=== PATIENT | female | born 2000 | race Caucasian/White ===

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

== ENCOUNTER 2019-01-09 13:05 | Emergency (ER) | payer BC ==
--- NOTE | 2019-01-09 14:06 | ER Document Report ---
ED Medical Screen (RME) - General Chief Complaint: Lower Abdominal Pain Stated Complaint: VOMITING,ABDOMINAL PAIN Time Seen by Provider: 01/09/19 14:04 Mode of Arrival: Ambulatory Information source: Patient Notes: 17-year-old female presents to ED for complaint of upper abdominal pain nausea vomiting or diarrhea times a month. She states she has been dizzy off and on. She states she cannot keep any food or fluids down. She denies any past medical history she does smoke half pack a day denies drinking or drugs. She states her only medical history is ear tubes as a child. She states she works at [employer] and lives with her mother. Patient is alert oriented respirations regular and unlabored speaking in full sentences walks with a even steady gait. I have greeted and performed a rapid initial assessment of this patient. A comprehensive ED assessment and evaluation of the patient, analysis of test results and completion of medical decision making process will be conducted by an additional ED providers. Dictation of this chart was performed using voice recognition software; therefore, there may be some unintended grammatical errors. TRAVEL OUTSIDE OF THE [place] IN LAST 30 DAYS: No - Related Data Allergies/Adverse Reactions: No Known Allergies Allergy (Verified 01/09/19 13:09) Past Medical History Renal/ Medical History: Denies: Hx Peritoneal Dialysis - Immunizations Immunizations up to date: Yes Hx Diphtheria, Pertussis, Tetanus Vaccination: Yes Physical Exam - Vital signs Vitals: Temp Pulse Resp BP Pulse Ox 98.2 F 92 H 16 147/81 H 97 01/09/19 13:12 01/09/19 13:12 01/09/19 13:12 01/09/19 13:12 01/09/19 13:12 Course - Vital Signs Vital signs: Temp Pulse Resp BP Pulse Ox 98.2 F 92 H 16 147/81 H 97 01/09/19 13:12 01/09/19 13:12 01/09/19 13:12 01/09/19 13:12 01/09/19 13:12
[2019-01-09 15:21] LABS: ALANINE AMINOTRANSFERASE 26 U/L (5-35); ALBUMIN 5.2 g/dL (3.7-5.6); ALKALINE PHOSPHATASE 47 U/L (50-135); ANION GAP 11 (5-19); ASPARTATE AMINO TRANSFERASE 22 U/L (5-30); BILIRUBIN,DIRECT 0.2 mg/dL (0.0-0.4); BILIRUBIN,TOTAL 0.8 mg/dL (0.2-1.3); BLOOD UREA NITROGEN 10 mg/dL (7-20); CALCIUM 10.1 mg/dL (8.4-10.2); CARBON DIOXIDE 27 mmol/L (22-30); CHLORIDE 103 mmol/L (98-107); GLUCOSE 88 mg/dL (75-110); LIPASE 104.7 U/L (23-300); POTASSIUM 4.2 mmol/L (3.6-5.0); SODIUM 141.1 mmol/L (137-145); TOTAL PROTEIN 8.2 g/dL (6.3-8.2)
[2019-01-09 15:34] LABS: APPEARANCE,URINE CLEAR; BILIRUBIN,URINE NEGATIVE (NEGATIVE); COLOR,URINE STRAW; GLUCOSE, URINE NEGATIVE (NEGATIVE); KETONES,URINE NEGATIVE (NEGATIVE); NITRITE,URINE NEGATIVE (NEGATIVE); PROTEIN,URINE NEGATIVE (NEGATIVE); URINE SPECIFIC GRAVITY 1.006; UROBILINOGEN,URINE NEGATIVE mg/dL (<2.0)
[2019-01-09 15:35] LABS: LEUKOCYTE ESTERASE,URINE NEGATIVE (NEGATIVE)
[2019-01-09 15:40] LABS: URINE AMPHETAMINES SCREEN NEGATIVE; URINE BARBITURATES SCREEN NEGATIVE; URINE BENZODIAZEPINES SCREEN NEGATIVE; URINE COCAINE SCREEN NEGATIVE; URINE MARIJUANA (THC) SCREEN UNCONFIRMED POSITIVE; URINE METHADONE SCREEN NEGATIVE; URINE PHENCYCLIDINE SCREEN NEGATIVE
--- NOTE | 2019-01-09 16:10 | RADIOLOGY REPORT (SQ) ---
EXAM DESCRIPTION: U/S ABDOMEN LIMITED W/O DOP COMPLETED DATE/TIME: 01/09/2019 3:56 pm REASON FOR STUDY: upper abdominal pain for a month COMPARISON: None. TECHNIQUE: Dynamic and static grayscale images acquired of the abdomen and recorded on PACS. Additio nal selected color Doppler and spectral images recorded. LIMITATIONS: None. FINDINGS: PANCREAS: Midline pancreas unremarkable LIVER: No masses. Echotexture normal. LIVER VASCULATURE: Normal directional flow of the main portal vein and hepatic veins. GALLBLADDER: No stones. Normal wall thickness. No pericholecystic fluid. ULTRASOUND-DETECTED PARRA'S SIGN: Negative. INTRAHEPATIC DUCTS AND COMMON DUCT: CBD and intrahepatic ducts normal caliber. No filling defects. INFERIOR VENA CAVA: Normal flow. AORTA: No aneurysm. RIGHT KIDNEY: Normal size. Normal echogenicity. No solid or suspicious masses. No hydronephrosis. No calcifications. PERITONEAL AND RIGHT PLEURAL SPACE: No ascites or effusions. OTHER: No other significant findings. IMPRESSION: NORMAL RIGHT UPPER QUADRANT ULTRASOUND. TECHNICAL DOCUMENTATION: JOB ID: [id number] [employer]- All Rights Reserved Reading location - IP/workstation name: [email or web address]
[2019-01-09 16:32] LABS: ABSOLUTE BASOPHILS # (AUTO) 0.1 10^3/uL (0.0-0.2); ABSOLUTE EOSINOPHILS # (AUTO) 0.1 10^3/uL (0.0-0.6); ABSOLUTE LYMPHOCYTES (AUTO) 2.3 10^3/uL (0.5-4.7); ABSOLUTE MONOCYTES (AUTO) 0.6 10^3/uL (0.1-1.4); ABSOLUTE NEUT (AUTO) 6.3 10^3/uL (1.7-8.2); BASOPHILS % (AUTO) 0.6 % (0-2); EOSINOPHILS % (AUTO) 1.4 % (0-6); HEMATOCRIT 43.6 % (36.0-47.0); HEMOGLOBIN 15.3 g/dL (12.0-15.5); LYMPHOCYTES % (AUTO) 24.8 % (13-45); MEAN CORPUSCULAR HEMOGLOBIN 30.7 pg (27.0-33.4); MEAN CORPUSCULAR HGB CONC 35.1 g/dL (32.0-36.0); MEAN CORPUSCULAR VOLUME 88 fl (80-97); MONOCYTES % (AUTO) 6.1 % (3-13); PLATELET COUNT 360 10^3/uL (150-450); RED BLOOD COUNT 4.98 10^6/uL (3.72-5.28); RED CELL DISTRIBUTION WIDTH 12.4 % (11.5-14.0); SEGMENTED NEUTROPHILS % (AUTO) 67.1 % (42-78); TOTAL CELLS COUNTED % (AUTO) 100 %; WHITE BLOOD COUNT 9.4 10^3/uL (4.0-10.5)
--- NOTE | 2019-01-09 18:20 | ER Document Report ---
ED General - General Chief Complaint: Lower Abdominal Pain Stated Complaint: VOMITING,ABDOMINAL PAIN Time Seen by Provider: 01/09/19 14:04 Primary Care Provider: SHANEL RIVERO MD [ACTIVE STAFF] - Follow up in 1 week (for GI follow up) Mode of Arrival: Ambulatory TRAVEL OUTSIDE OF THE [place] IN LAST 30 DAYS: No - HPI Notes: 18 year old female to the ED with mom and dad with C/O diffuse abdominal pain with associated nausea, vomiting, and diarrhea for about one month. dad reports that really the vomiting and diarrhea had an uptick in occurrence the past week. Patient states she has vomited about 3 times. States that when she eats, she has worsening upper abdominal pain. States that every time she eats, "it goes right through me". States that she recently has been taking NSaids every day to combat pain from impacted wisdom teeth. She is supposed to get them removed on February 16 but she has been struggling with the pain. Admits that with the dental pain, she experiences headaches and sometimes some dizziness. In regards to her abdominal pain, she denies sick contact, recent travel, recent Abx use. She denies blood in her stool or emesis. Denies hx of PUD. - Related Data Allergies/Adverse Reactions: No Known Allergies Allergy (Verified 01/09/19 13:09) Past Medical History - General Information source: Patient - Social History Smoking Status: Current Every Day Smoker Chew tobacco use (# tins/day): No Frequency of alcohol use: None Drug Abuse: Marijuana Family History: Reviewed & Not Pertinent Patient has suicidal ideation: No Patient has homicidal ideation: No Renal/ Medical History: Denies: Hx Peritoneal Dialysis - Immunizations Immunizations up to date: Yes Hx Diphtheria, Pertussis, Tetanus Vaccination: Yes Review of Systems - Review of Systems Constitutional: Malaise. denies: Chills, Fever EENT: No symptoms reported Cardiovascular: Dizziness. denies: Chest pain, Palpitations, Dyspnea Respiratory: Cough. denies: Short of breath Gastrointestinal: Abdominal pain, Diarrhea, Nausea, Vomiting. denies: Blood streaked bowels, Black stools, Rectal bleeding Genitourinary: denies: Frequency, Flank pain Musculoskeletal: No symptoms reported Skin: No symptoms reported Neurological/Psychological: No symptoms reported -: Yes All other systems reviewed and negative Physical Exam - Vital signs Vitals: Temp Pulse Resp BP Pulse Ox 98.2 F 92 H 16 147/81 H 97 01/09/19 13:12 01/09/19 13:12 01/09/19 13:12 01/09/19 13:12 01/09/19 13:12 Interpretation: Normal - General General appearance: Appears well In distress: None - HEENT Head: Normocephalic, Atraumatic Eyes: Normal Pupils: PERRL - Respiratory Respiratory status: No respiratory distress Chest status: Nontender Breath sounds: Normal Chest palpation: Normal - Cardiovascular Rhythm: Regular Heart sounds: Normal auscultation Murmur: No - Abdominal Inspection: Normal Distension: No distension Bowel sounds: Normal Tenderness: Tender - mildly diffusely TTP throughout entire abdomen. Negative McBurney's point, no CVA Tenderness. No rebound, no guarding. Negative Rovsings. Negative Espinosa's sign. Organomegaly: No organomegaly - Back Back: No: CVA tenderness - Extremities General upper extremity: Normal inspection, Nontender, Normal color, Normal ROM, Normal temperature General lower extremity: Normal inspection, Nontender, Normal color, Normal ROM, Normal temperature, Normal weight bearing. No: Mariela's sign - Neurological Neuro grossly intact: Yes Cognition: Normal Orientation: AAOx4 Ashley Coma Scale Eye Opening: Spontaneous [place] Coma Scale Verbal: Oriented [place] Coma Scale Motor: Obeys Commands Ashley Coma Scale Total: 15 Speech: Normal Motor strength normal: LUE, RUE, LLE, RLE Sensory: Normal - Psychological Associated symptoms: Normal affect, Normal mood - Skin Skin Temperature: Warm Skin Moisture: Dry Skin Color: Normal Course - Vital Signs Vital signs: Temp Pulse Resp BP Pulse Ox 98.2 F 85 16 132/67 H 99 01/09/19 13:12 01/09/19 19:27 01/09/19 19:27 01/09/19 19:27 01/09/19 19:27 - Laboratory Result Diagrams: 01/09/19 14:45 01/09/19 14:45 Laboratory results interpreted by me: 01/09/19 14:45 Alkaline Phosphatase 47 L - Transfer of Care Notes: 01/09/19: Impression: Diffuse abdominal pain, NV. Patient have very reassuring vital signs and labs -- there is no leukocytosis, no electrolyte changes, normal renal function, UA is reassuring. She is not . Discussed at length with patient and family about her symptoms. Some of her pain may be related to her Nsaid use for her impacted wisdom teeth. Will plan to have her start to take Carafate and Zofran. Will have her follow with GI for further management and possible scope. Encouraged to follow with PCP, dentist as well. Patient and mom and dad agree with the plan. Discharge - Discharge Clinical Impression: Nausea & vomiting, Diarrhea, Diffuse abdominal pain Condition: Good Disposition: HOME, SELF-CARE Instructions: Diarrhea, Nonspecific ([facility]), Family Physicians / Practices, Vomiting ([facility]) Additional Instructions: PUSH FLUIDS. AVOID ACIDIC FOODS SUCH TOMATO BASED FOODS, CITRUS. DECREASE CHOCOLATE INTAKE. RETURN IF WORSE. TAKE MEDICINES PRESCRIBED. Prescriptions: Ondansetron [Zofran Odt 4 mg Tablet] 1 tab PO Q6H #15 tab.rapdis Sucralfate [Carafate 1 gm Tablet] 1 gm PO QID #30 tablet Referrals: SHANEL RIVERO MD [ACTIVE STAFF] - Follow up in 1 week (for GI follow up)
[2019-01-09 19:29] VITALS: BP 132/67
== END 2019-01-09 19:30 | disposition home or self-care (01) ==
LOC: ER 13:05
DX: R10.84 Generalized abdominal pain (principal); R10.817 Generalized abdominal tenderness; R11.2 Nausea with vomiting, unspecified; R19.7 Diarrhea, unspecified; K01.1 Impacted teeth; R51 Headache; K08.89 Other specified disorders of teeth and supporting structures; R42 Dizziness and giddiness; F17.200 Nicotine dependence, unspecified, uncomplicated; R05 Cough; R53.81 Other malaise
CPT/HCPCS: 36415; 76705; 80053; 80307; 81001; 83690; 84703; 85025; 87086; 99284

== ENCOUNTER 2019-03-17 15:28 | Emergency (ER) | payer BC ==
--- NOTE | 2019-03-17 16:27 | ER Document Report ---
ED Medical Screen (RME) - General Chief Complaint: Palpitations Stated Complaint: CHEST PAIN Time Seen by Provider: 03/17/19 16:25 Mode of Arrival: Ambulatory Information source: Patient Notes: 18-year-old female presents to ED for palpitations and midsternal pain since morning on and off and has been they have progressively gotten worse. She states she has had palpitations before and they have not given her a diagnosis. She started her cycle on . She states she smokes cigarettes does not use alcohol and drugs. She is alert and oriented respirations regular and unlabored speaking in full sentences. I have greeted and performed a rapid initial assessment of this patient. A comprehensive ED assessment and evaluation of the patient, analysis of test results and completion of medical decision making process will be conducted by an additional ED providers. TRAVEL OUTSIDE OF THE [place] IN LAST 30 DAYS: No - Related Data Allergies/Adverse Reactions: No Known Allergies Allergy (Verified 03/17/19 15:29) Past Medical History Renal/ Medical History: Denies: Hx Peritoneal Dialysis - Immunizations Immunizations up to date: Yes Hx Diphtheria, Pertussis, Tetanus Vaccination: Yes Physical Exam - Vital signs Vitals: Temp Pulse Resp BP Pulse Ox 98.4 F 66 18 127/81 H 99 03/17/19 15:53 03/17/19 15:53 03/17/19 15:53 03/17/19 15:53 03/17/19 15:53 Course - Vital Signs Vital signs: Temp Pulse Resp BP Pulse Ox 98.4 F 66 18 127/81 H 99 03/17/19 15:53 03/17/19 15:53 03/17/19 15:53 03/17/19 15:53 03/17/19 15:53
--- NOTE | 2019-03-17 17:38 | RADIOLOGY REPORT (SQ) ---
EXAM DESCRIPTION: CHEST 2 VIEWS COMPLETED DATE/TIME: 03/17/2019 5:28 pm REASON FOR STUDY: palpitations COMPARISON: 12/25/2018 EXAM PARAMETERS: NUMBER OF VIEWS: two views TECHNIQUE: Digital Frontal and Lateral radiographic views of the chest acquired. RADIATION DOSE: NA LIMITATIONS: none FINDINGS: LUNGS AND PLEURA: No opacities, masses or pneumothorax. No pleural effusion. MEDIASTINUM AND HILAR STRUCTURES: No masses or contour abnormalities. HEART AND VASCULAR STRUCTURES: Heart normal size. No evidence for failure. BONES: No acute findings. HARDWARE: None in the chest. OTHER: No other significant finding. IMPRESSION: NO ACUTE RADIOGRAPHIC FINDING IN THE CHEST. TECHNICAL DOCUMENTATION: JOB ID: [id number] [employer]- All Rights Reserved Reading location - IP/workstation name: [email or web address]
[2019-03-17 17:59] LABS: ABSOLUTE EOSINOPHILS # (AUTO) 0.1 10^3/uL (0.0-0.6); ABSOLUTE MONOCYTES (AUTO) 0.4 10^3/uL (0.1-1.4); ABSOLUTE NEUT (AUTO) 3.5 10^3/uL (1.7-8.2); BASOPHILS % (AUTO) 0.6 % (0-2); EOSINOPHILS % (AUTO) 2.2 % (0-6); HEMATOCRIT 40.2 % (36.0-47.0); HEMOGLOBIN 14.3 g/dL (12.0-15.5); LYMPHOCYTES % (AUTO) 33.2 % (13-45); MEAN CORPUSCULAR HEMOGLOBIN 30.6 pg (27.0-33.4); MEAN CORPUSCULAR HGB CONC 35.5 g/dL (32.0-36.0); MEAN CORPUSCULAR VOLUME 86 fl (80-97); PLATELET COUNT 335 10^3/uL (150-450); RED BLOOD COUNT 4.66 10^6/uL (3.72-5.28); RED CELL DISTRIBUTION WIDTH 12.1 % (11.5-14.0); TOTAL CELLS COUNTED % (AUTO) 100 %; WHITE BLOOD COUNT 6.2 10^3/uL (4.0-10.5)
[2019-03-17 18:20] LABS: ALBUMIN 4.9 g/dL (3.7-5.6); ALKALINE PHOSPHATASE 58 U/L (50-135); ANION GAP 10 (5-19); ASPARTATE AMINO TRANSFERASE 35 U/L (5-30); BILIRUBIN,DIRECT 0.1 mg/dL (0.0-0.4); BILIRUBIN,TOTAL 0.5 mg/dL (0.2-1.3); BLOOD UREA NITROGEN 6 mg/dL (7-20); CALCIUM 10.1 mg/dL (8.4-10.2); CARBON DIOXIDE 27 mmol/L (22-30); CHLORIDE 104 mmol/L (98-107); GLUCOSE 92 mg/dL (75-110); POTASSIUM 4.3 mmol/L (3.6-5.0); TOTAL PROTEIN 7.8 g/dL (6.3-8.2)
[2019-03-17 21:05] LABS: APPEARANCE,URINE CLEAR; BILIRUBIN,URINE NEGATIVE (NEGATIVE); COLOR,URINE YELLOW; GLUCOSE, URINE NEGATIVE (NEGATIVE); KETONES,URINE TRACE mg/dL (NEGATIVE); LEUKOCYTE ESTERASE,URINE NEGATIVE (NEGATIVE); NITRITE,URINE NEGATIVE (NEGATIVE); PROTEIN,URINE NEGATIVE (NEGATIVE); URINE SPECIFIC GRAVITY 1.015; UROBILINOGEN,URINE NEGATIVE mg/dL (<2.0)
--- NOTE | 2019-03-17 21:34 | ER Document Report ---
ED Cardiac - General Chief Complaint: Palpitations Stated Complaint: CHEST PAIN Time Seen by Provider: 03/17/19 16:25 Mode of Arrival: Ambulatory Information source: Patient Notes: 18-year-old female presents to the ER with palpitations chest pain feeling short of breath. She has been to multiple ERs in last 6 months for the same. This is her seventh visit to an ER in the last 6 months. For the same. They tell her that she has anxiety. She is not followed up with her family doctor. Same thing happened today. She woke this morning feeling okay then she had some chest pains. She got scared and then started feeling palpitations at that time. Which made her shortness of breath occur and then made her chest pains worse. She got scared she had an overwhelming feeling of doom. She thought she was going to . She began to breathe heavier. Which made everything worse. At the time she got to the ER in the ER waiting room when she came in and sat down in the waiting room she started to feel better when she knew she was safe. TRAVEL OUTSIDE OF THE [place] IN LAST 30 DAYS: No - Related Data Allergies/Adverse Reactions: No Known Allergies Allergy (Verified 03/17/19 15:29) Past Medical History - General Information source: Patient - Social History Smoking Status: Current Every Day Smoker Drug Abuse: None Family History: Reviewed & Not Pertinent Patient has suicidal ideation: No Patient has homicidal ideation: No Renal/ Medical History: Denies: Hx Peritoneal Dialysis - Immunizations Immunizations up to date: Yes Hx Diphtheria, Pertussis, Tetanus Vaccination: Yes Review of Systems - Review of Systems Constitutional: denies: No symptoms reported, See HPI, Chills, Diaphoresis, Fever, Malaise, Weakness, Other, Weight gain, Weight loss, Recent illness EENT: denies: No symptoms reported, See HPI, Eye pain, Eye discharge, Blurred vision, Tearing, Double vision, Ear pain, Ear discharge, Nose pain, Nose congestion, Nose discharge, Sinus pressure, Sinus discharge, Throat pain, Difficulty swallowing, Throat swelling, Mouth pain, Mouth swelling, Dental problem, Vertigo, Other Cardiovascular: Chest pain, Palpitations - Will visit, Dizziness - 89 7year 7 rectal blood culture now to 20 days Respiratory: Short of breath - House feeds here advised to Gastrointestinal: denies: No symptoms reported, See HPI, Abdomen distended, Abdominal pain, Diarrhea, Nausea, Vomiting, Constipation, Blood streaked bowels, Poor appetite, Poor fluid intake, Blood in vomit, Black stools, Rectal bleeding, Last bowel movement, Fecal incontinence, Other Genitourinary: denies: No symptoms reported, See HPI - They okay, Burning, Dysu riki, Discharge, Frequency, Flank pain, Hematuria, Incontinence, Pain, Urgency, Retention, Other Female Genitourinary: denies: No symptoms reported, See HPI, Last menstrual per iod, , Post menopausal, Heavy/abnormal periods, Irregular period, Vaginal bleeding, Vaginal discharge, Vaginal odor, Painful intercourse, Other Musculoskeletal: denies: No symptoms reported, See HPI, Back pain, Gout, Joint pain, Joint swelling, Muscle pain, Muscle stiffness, Neck pain, Deformity, Leg swelling, Ankle swelling, Other Skin: denies: No symptoms reported, See HPI, Change in color, Change in hair/nails, Dryness, Lesions, Lumps, Rash, Other Hematologic/Lymphatic: denies: No symptoms reported, See HPI, Anemia, Blood clots, Easy bleeding, Easy bruising, Enlarged lymph nodes, Swollen glands, Other Physical Exam - Vital signs Vitals: Temp Pulse Resp BP Pulse Ox 98.4 F 66 18 127/81 H 99 03/17/19 15:53 03/17/19 15:53 03/17/19 15:53 03/17/19 15:53 03/17/19 15:53 - Notes Notes: PHYSICAL EXAMINATION: GENERAL: Well-appearing, well-nourished and in no acute distress. HEAD: Atraumatic, normocephalic. EYES: Pupils equal round and reactive to light, extraocular movements intact, sclera anicteric, conjunctiva are normal. ENT: nares patent, oropharynx clear without exudates. Moist mucous membranes. NECK: Normal range of motion, supple without lymphadenopathy LUNGS: Breath sounds clear to auscultation bilaterally and equal. No wheezes rales or rhonchi. HEART: Regular rate and rhythm without murmurs ABDOMEN: Soft, nontender, normoactive bowel sounds. No guarding, no rebound. No masses appreciated. EXTREMITIES: Normal range of motion, no pitting or edema. No cyanosis. NEUROLOGICAL: No focal neurological deficits. Moves all extremities spont aneously and on command. PSYCH: Normal mood, normal affect. Very anxious at times. She is smiling and comfortable. SKIN: Warm, Dry, normal turgor, no rashes or lesions noted. Course - Re-evaluation Re-evalutation: 03/17/19 21:35 Long discussion with patient. Her symptoms all seem to be related to anxiety. Her friend is that is with her witnesses are having hyperventilation episodes when these happen. She says she feels scared and overwhelming impending doom. I discussed that she needs to follow-up with her family doctor. She says she does want to see her doctor and get medications to make her feel like a zombie. I told her I would recommend putting her on sedating medications like benzodiazepines but she would probably benefit from being on a SSRI. Patient is comfortable. She wants to go home. She feels better and calm. - Vital Signs Vital signs: Temp Pulse Resp BP Pulse Ox 98.4 F 66 18 127/81 H 99 03/17/19 15:53 03/17/19 15:53 03/17/19 15:53 03/17/19 15:53 03/17/19 15:53 - Laboratory Result Diagrams: 03/17/19 17:35 03/17/19 17:35 Laboratory results interpreted by me: 03/17/19 03/17/19 17:35 20:47 BUN 6 L AST 35 H Urine Ketones TRACE H Urine Blood LARGE H - Diagnostic Test Radiology reviewed: Pending, Image reviewed, Reports reviewed - EKG Interpretation by Me EKG shows normal: Sinus rhythm Rate: Normal Additional EKG results interpreted by me: 03/17/19 21:34 EKG dated 03/17/2019 at 1944 shows a normal sinus rhythm 70 beats a minute normal axis normal intervals no acute ST-T changes normal EKG Discharge - Discharge Clinical Impression: Anxiety, Palpitations Chest pain Qualifiers: Chest pain type: unspecified Qualified Code(s): R07.9 - Chest pain, unspecified Condition: Stable Disposition: HOME, SELF-CARE Instructions: Palpitations (Irregular or Rapid Heartrate) ([facility]), Anxiety ([facility]) Prescriptions: Hydroxyzine Pamoate [Vistaril 25 mg Capsule] 25 mg PO Q6HP PRN #14 capsule PRN Reason:
[2019-03-17 22:23] VITALS: BP 132/80
--- NOTE | 2019-03-17 23:06 | EKG REPORT ---
SEVERITY:- NORMAL ECG - SINUS RHYTHM : Confirmed by: Constanza Maldonado MD 17-Mar-2019 23:06:00
== END 2019-03-17 22:21 | disposition home or self-care (01) ==
LOC: ER 15:28
DX: F41.9 Anxiety disorder, unspecified (principal); R00.2 Palpitations; R07.9 Chest pain, unspecified; R06.02 Shortness of breath; R42 Dizziness and giddiness; F17.200 Nicotine dependence, unspecified, uncomplicated
CPT/HCPCS: 36415; 71046; 80053; 81001; 84443; 84703; 85025; 93005; 93010; 99285

== ENCOUNTER 2019-04-04 12:30 | Emergency (ER) | payer BC ==
--- NOTE | 2019-04-04 12:45 | ER Document Report ---
HPI - HPI Patient complains to provider of: sore throat Time Seen by Provider: 04/04/19 12:34 Onset: Last week Onset/Duration: Sudden, Persistent Context: This 18-year-old female presents emergency department with complaint of sore throat for the past week. Reports it started off with a tickle and now it hurts when she swallows. Patient is drinking a drink without problems. Denies fever vomiting diarrhea. No known strep exposure. Reports she has had strep twice in the past. Associated Symptoms: None Exacerbated by: Food Relieved by: Denies Similar symptoms previously: No Recently seen / treated by doctor: No - REPRODUCTIVE Reproductive: DENIES: : Past Medical History - General Information source: Patient Last Menstrual Period: 03/14/19 - Social History Smoking Status: Current Every Day Smoker Cigarette use (# per day): Yes Frequency of alcohol use: None Drug Abuse: None Occupation: lawn care Lives with: Family - mom Family History: Reviewed & Not Pertinent Patient has suicidal ideation: No Patient has homicidal ideation: No - Medical History Medical History: Negative Renal/ Medical History: Denies: Hx Peritoneal Dialysis Past Surgical History: Reports: Hx Myringotomy - Immunizations Immunizations up to date: Yes Hx Diphtheria, Pertussis, Tetanus Vaccination: Yes Vertical Provider Document - CONSTITUTIONAL Agree With Documented VS: Yes Exam Limitations: No Limitations General Appearance: WD/WN, No Apparent Distress - INFECTION CONTROL TRAVEL OUTSIDE OF THE [place] IN LAST 30 DAYS: No - HEENT HEENT: Atraumatic, Normocephalic, PERRLA, Pharyngeal Erythema - Good airway opens mouth wide no trismus no Jonsa's clear voice. negative: Conjuctival Injection, Pharyngeal Exudate, Tympanic Membrane Red, Tympanic Membrane Bulging - NECK Neck: Normal Inspection, Supple. negative: Lymphadenopathy-Left, Lymphadenopathy-Right - RESPIRATORY Respiratory: Breath Sounds Normal, No Respiratory Distress - CARDIOVASCULAR Cardiovascular: Regular Rate, Regular Rhythm - MUSCULOSKELETAL/EXTREMETIES Musculoskeletal/Extremeties: JG SIDDIQI - NEURO Level of Consciousness: Awake, Alert, Appropriate Motor/Sensory: No Motor Deficit - DERM Integumentary: Warm, Dry, No Rash Course - Re-evaluation Re-evalutation: 04/04/19 12:42 18-year-old female presents with complaints of sore throat. No tonsillar exudate noted. Pharyngeal erythema noted. Good airway. Will evaluate with strep test Negative strep test. Patient looks good nontoxic. Good airway. She was instructed on throat culture pending and will be contacted should she need antibiotics she verbalized understanding to all instructions. Dictation of this chart was performed using voice recognition software; therefore, there may be some unintended grammatical errors. Discharge - Discharge Clinical Impression: Sore throat Condition: Stable Disposition: HOME, SELF-CARE Instructions: Sore Throat ([facility]) Additional Instructions: *You have been evaluated for a sore throat, Your strep test was negative. A throat culture has been collected. Should you need antibiotics you will be contacted in 2 to 3 days. In the meantime *Gargle with warm salt water and take throat lozenges as indicated for comfort *Do not let anyone drink/eat after you *Good hand washing *Follow-up with a primary care provider within 1 week for recheck *Return to ED for worsening condition change, needs, trouble swallowing concerns
[2019-04-04 13:09] VITALS: BP 119/78
== END 2019-04-04 13:17 | disposition home or self-care (01) ==
LOC: ER 12:30
DX: J02.9 Acute pharyngitis, unspecified (principal); F17.210 Nicotine dependence, cigarettes, uncomplicated
CPT/HCPCS: 87070; 87880

== ENCOUNTER 2019-07-04 11:52 | Emergency (ER) | payer BC ==
[2019-07-04] MEDS ORDERED: ONDANSETRON 4 MG TAB.RAPDIS PO ONE (12:09)
--- NOTE | 2019-07-04 12:11 | ER Document Report ---
ED Medical Screen (RME) - General Chief Complaint: Nausea/Vomiting/Diarrhea Stated Complaint: DIARRHEA Time Seen by Provider: 07/04/19 12:06 Mode of Arrival: Ambulatory Information source: Patient Notes: 19-year-old female with no prior history presents emergency department with complaints of nausea vomiting diarrhea since Wednesday. Reports she attempted to take Pepto this morning and vomited it up. Reports diarrhea this morning also. Unknown fever. Did not receive flu vaccine. Is also here with her mother with the same symptoms. I have greeted and performed a rapid initial assessment of this patient. A comprehensive ED assessment and evaluation of the patient, analysis of test results and completion of the medical decision making process will be conducted by additional ED providers. TRAVEL OUTSIDE OF THE [place] IN LAST 30 DAYS: No - Related Data Allergies/Adverse Reactions: No Known Allergies Allergy (Verified 03/17/19 15:29) Past Medical History - Social History Chew tobacco use (# tins/day): No Frequency of alcohol use: None Drug Abuse: Marijuana Renal/ Medical History: Denies: Hx Peritoneal Dialysis Past Surgical History: Reports: Hx Myringotomy - Immunizations Immunizations up to date: Yes Hx Diphtheria, Pertussis, Tetanus Vaccination: Yes Physical Exam - Vital signs Vitals: Temp Pulse Resp BP Pulse Ox 97.6 F 93 20 102/62 100 07/04/19 12:00 07/04/19 12:07/04/19 12:07/04/19 12:00 07/04/19 12:00 Course - Vital Signs Vital signs: Temp Pulse Resp BP Pulse Ox 97.6 F 93 20 102/62 100 07/04/19 12:07/04/19 12:07/04/19 12:00 07/04/19 12:00 07/04/19 12:00
[2019-07-04] MEDS ORDERED: NORMAL SALINE 1000 ML 1,000 ML IV ONE (13:09)
--- NOTE | 2019-07-04 13:10 | ER Document Report ---
ED GI/ - General Chief Complaint: Nausea/Vomiting/Diarrhea Stated Complaint: DIARRHEA Time Seen by Provider: 07/04/19 12:06 Mode of Arrival: Ambulatory Notes: Patient is a 19-year-old female who presents to the emergency department with a chief complaint of nausea, vomiting, and diarrhea. Patient states that her sy mptoms started 3 days ago. Her mother has the same symptoms. Patient denies any hematemesis or hematochezia. Denies melena stools. Patient is an everyday smoker and she also smokes marijuana every day. Last menstrual cycle was June 27. Denies any dysuria or vaginal discharge. TRAVEL OUTSIDE OF THE [place] IN LAST 30 DAYS: No - Related Data Allergies/Adverse Reactions: No Known Allergies Allergy (Verified 03/17/19 15:29) Past Medical History - General Information source: Patient - Social History Smoking Status: Current Every Day Smoker Chew tobacco use (# tins/day): No Frequency of alcohol use: None Drug Abuse: Marijuana Family History: Reviewed & Not Pertinent Patient has suicidal ideation: No Patient has homicidal ideation: No Renal/ Medical History: Denies: Hx Peritoneal Dialysis Past Surgical History: Reports: Hx Myringotomy - Immunizations Immunizations up to date: Yes Hx Diphtheria, Pertussis, Tetanus Vaccination: Yes Review of Systems - Review of Systems Notes: REVIEW OF SYSTEMS: CONSTITUTIONAL : Denies recent illness. Denies recent unintentional weight l oss. Denies fever, chills, or sweats. EENT: Denies eye, ear, throat, or mouth pain, discharge, or symptoms. Denies nasal or sinus congestion. CARDIOVASCULAR: Denies chest pain. RESPIRATORY: Denies shortness of breath, cough, congestion, difficulty breathing, or wheezing. GASTROINTESTINAL: See HPI. GENITOURINARY: Denies difficulty urinating, burning, blood in urine, urgency or frequency. MUSCULOSKELETAL: Denies neck and back pain. Denies joint pain or swelling. SKIN: Denies rash, itchiness, or lesions HEMATOLOGIC : Denies easy bruising or bleeding. LYMPHATIC: Denies swollen, painful, enlarged glands. NEUROLOGICAL: Denies no numbness or tingling denies weakness. Denies headache. Denies altered mental status. Denies alteration in speech. PSYCHIATRIC: Denies stress, anxiety, alteration in sleep patterns, or depression. All other systems reviewed and negative. Physical Exam - Vital signs Vitals: Temp Pulse Resp BP Pulse Ox 97.6 F 93 20 102/62 100 07/04/19 12:00 07/04/19 12:00 07/04/19 12:00 07/04/19 12:00 07/04/19 12:00 - Notes Notes: PHYSICAL EXAMINATION: GENERAL: Appears well, healthy, well-nourished, no acute distress. HEAD: Normocephalic, atraumatic. EYES: PERRL, conjunctiva normal, all extraocular movements intact, sclera nonicteric ENT: Moist mucous membranes. NECK: Supple, no noticeable swelling, redness, rash. Normal range of motion. LUNGS: Equal breath sounds bilaterally and clear to auscultation. No wheezes rales or rhonchi. CARDIOVASCULAR: S1-S2, regular rate, regular rhythm. Radial pulses 2+, normal. ABDOMEN: Normoactive bowel sounds. Soft, mildly tender generalized abdomen, no guarding, no rebound tenderness, and no masses palpated. EXTREMITIES: Normal strength and range of motion, no pitting or edema. No cyanosis. NEUROLOGICAL: Moves all extremities upon command. Strength 5/5 in all extremities. PSYCH: Normal mood, normal affect. SKIN: Warm, dry. No rash, lesions, ulcerations noted. Normal skin turgor. Course - Re-evaluation Re-evalutation: 07/04/19 14:14 Hematology is unremarkable. Chemistries are also unremarkable. Patient has ketones in her urine, consistent with dehydration. Influenza a and B are negative. I suspect the patient has gastroenteritis. Patient will follow-up with her primary care provider in regards to this visit. I do not suspect appendicitis, bowel obstruction, or any other life-threatening etiology at this time. Follow-up precautions were given. Verbal discharge instructions were given to the patient. They verbalized understanding. They are stable for discharge. - Vital Signs Vital signs: Temp Pulse Resp BP Pulse Ox 97.6 F 93 20 102/62 100 07/04/19 12:00 07/04/19 12:00 07/04/19 12:00 07/04/19 12:00 07/04/19 12:00 - Laboratory Result Diagrams: 07/04/19 13:02 07/04/19 13:02 Laboratory results interpreted by me: 07/04/19 07/04/19 13:02 13:02 Lymph % (Auto) 10.1 L Seg Neutrophils % 80.6 H Urine Ketones 20 H Urine Urobilinogen 4.0 H Discharge - Discharge Clinical Impression: Vomiting Qualifiers: Vomiting type: unspecified Vomiting Intractability: non-intractable Nausea presence: with nausea Qualified Code(s): R11.2 - Nausea with vomiting, unspecified Diarrhea Qualifiers: Diarrhea type: unspecified type Qualified Code(s): R19.7 - Diarrhea, unspecifi ed Condition: Stable Disposition: HOME, SELF-CARE Instructions: Intravenous (IV) Fluids ([facility]), Antinausea Medication ([facility]), Diarrhea, Nonspecific ([facility]) Additional Instructions: You were seen today in the emergency department for nausea, vomiting, and diarrhea. You are given IV fluids and nausea medication. Your blood labs are normal. Your urine shows that you are dehydrated. Please continue to drink plenty of fluids. You are being sent home with nausea medication. Please take them as needed. Follow-up with your primary care provider in regards to this visit. If you have worsening symptoms, please return to the ED. Prescriptions: Ondansetron [Zofran Odt 4 mg Tablet] 1 - 2 tab PO Q4H PRN #20 tab.rapdis PRN Reason: For Nausea/Vomiting
[2019-07-04 13:19] LABS: ABSOLUTE EOSINOPHILS # (AUTO) 0.1 10^3/uL (0.0-0.6); ABSOLUTE LYMPHOCYTES (AUTO) 0.6 10^3/uL (0.5-4.7); ABSOLUTE MONOCYTES (AUTO) 0.5 10^3/uL (0.1-1.4); BASOPHILS % (AUTO) 0.2 % (0-2); EOSINOPHILS % (AUTO) 1.2 % (0-6); HEMATOCRIT 40.8 % (36.0-47.0); HEMOGLOBIN 14.3 g/dL (12.0-15.5); LYMPHOCYTES % (AUTO) 10.1 % (13-45); MEAN CORPUSCULAR HEMOGLOBIN 30.1 pg (27.0-33.4); MEAN CORPUSCULAR VOLUME 86 fl (80-97); MONOCYTES % (AUTO) 7.9 % (3-13); PLATELET COUNT 221 10^3/uL (150-450); RED BLOOD COUNT 4.74 10^6/uL (3.72-5.28); RED CELL DISTRIBUTION WIDTH 13.2 % (11.5-14.0); SEGMENTED NEUTROPHILS % (AUTO) 80.6 % (42-78); TOTAL CELLS COUNTED % (AUTO) 100 %; WHITE BLOOD COUNT 6.1 10^3/uL (4.0-10.5)
[2019-07-04 13:32] LABS: APPEARANCE,URINE CLEAR; BILIRUBIN,URINE NEGATIVE (NEGATIVE); COLOR,URINE YELLOW; GLUCOSE, URINE NEGATIVE (NEGATIVE); KETONES,URINE 20 mg/dL (NEGATIVE); LEUKOCYTE ESTERASE,URINE NEGATIVE (NEGATIVE); NITRITE,URINE NEGATIVE (NEGATIVE); PROTEIN,URINE NEGATIVE (NEGATIVE); URINE SPECIFIC GRAVITY 1.018
[2019-07-04 13:42] LABS: A TYPE INFLUENZA AG NEGATIVE (NEGATIVE); B INFLUENZA AG NEGATIVE (NEGATIVE)
[2019-07-04 14:03] LABS: ALBUMIN 4.3 g/dL (3.5-5.0); ALKALINE PHOSPHATASE 58 U/L (38-126); ANION GAP 11 (5-19); ASPARTATE AMINO TRANSFERASE 27 U/L (14-36); BILIRUBIN,DIRECT 0.2 mg/dL (0.0-0.4); BILIRUBIN,TOTAL 0.7 mg/dL (0.2-1.3); BLOOD UREA NITROGEN 11 mg/dL (7-20); CALCIUM 9.5 mg/dL (8.4-10.2); CARBON DIOXIDE 23 mmol/L (22-30); CHLORIDE 107 mmol/L (98-107); GLUCOSE 87 mg/dL (75-110); TOTAL PROTEIN 7.4 g/dL (6.3-8.2)
[2019-07-04 14:44] VITALS: BP 109/56
== END 2019-07-04 14:42 | disposition home or self-care (01) ==
LOC: ER 11:52
DX: R11.2 Nausea with vomiting, unspecified (principal); R19.7 Diarrhea, unspecified; F12.10 Cannabis abuse, uncomplicated; F17.200 Nicotine dependence, unspecified, uncomplicated
CPT/HCPCS: 99284; 96360; 36415; 85025; 81025; 80053; 81001; 87804; S0119; J7030

== ENCOUNTER 2020-04-08 19:53 | Emergency (ER) | payer BC ==
[2020-04-08 20:01] VITALS: BP 125/62
[2020-04-08] MEDS ORDERED: PROCHLORPERAZINE MALEATE 10 MG TABLET PO ONE (20:27)
[2020-04-08] MEDS ORDERED: DIPHENHYDRAMINE HCL 50 MG CAPSULE PO ONE (20:30)
--- NOTE | 2020-04-08 20:33 | ER Document Report ---
ED Headache - General Chief Complaint: Headache Stated Complaint: HEADACHE Time Seen by Provider: 04/08/20 20:16 Primary Care Provider: [facility] [Provider Group] - Follow up as needed [facility] [Provider Group] - Follow up as needed [facility] [Provider Group] - Follow up as needed [facility] [Provider Group] - Follow up as needed [facility] [Provider Group] - Follow up as needed CRISTELA ORDOÑEZ MD [ACTIVE STAFF] - Follow up as needed JAMES KRAUSE MD [NO LOCAL MD] - Follow up as needed Notes: 19-year-old female presented to ED for complaint of a tingling sensation on her tongue yesterday. She states she asked her father to look at her tongue and he did not see anything. She states soon after that she had a tingling sensation in her head. She states that did go away but just felt weird then about 1130 12:00 today she started having a migraine and dizziness. She states it was different than her normal migraine headache. She states the pain is a level 4 at this time because she did not take any Tylenol or Motrin or anything for the headache. She states she used to take naproxen for her migraines but they made her feel weird so she quit taking them. She states that the primary care told her that the naproxen could not make her feel weird but she was concerned so she did not take it anymore. She states she does have a history of migraines panic attacks and anxiety. She states she does not know if this headache is mostly anxiety and that she did not take any medications for it. She is alert oriented respirations regular nonlabored speaking in full sentences. TRAVEL OUTSIDE OF THE [place] IN LAST 30 DAYS: No - HPI Patient reports: Hx chronic headaches Onset: This morning Onset was: Gradual Timing: Still present Quality of pain: Achy Severity: Moderate Pain Level: 4 Preceding symptoms: denies: Typical of prior aura(s), Visual disturbance Associated symptoms: Dizzy, Lightheaded. denies: Chills, Confusion, Double/blurred vision, Fainting, Fever, Memory loss, Motion sickness, Motor/sensory loss to arm, Motor/sensory loss to leg, Nausea/vomiting, Neck pain, Photophobia, Speech problems, Stiff neck, Sweaty, Tingling/numb sensation, Trouble walking Similar symptoms previously: Yes Recently seen / treated by doctor: No - Related Data Allergies/Adverse Reactions: No Known Allergies Allergy (Verified 03/17/19 15:29) Past Medical History - General Information source: Patient - Social History Smoking Status: Current Every Day Smoker Cigarette use (# per day): Yes - Half pack a day Smoking Education Provided: Yes - 3 minutes Frequency of alcohol use: None Drug Abuse: None Lives with: Family Family History: Reviewed & Not Pertinent Patient has suicidal ideation: No Patient has homicidal ideation: No - Past Medical History Cardiac Medical History: Reports: None Pulmonary Medical History: Reports: None EENT Medical History: Reports: None Neurological Medical History: Reports: Hx Migraine Endocrine Medical History: Reports: None Renal/ Medical History: Reports: None Malignancy Medical History: Reports: None GI Medical History: Reports: None Musculoskeletal Medical History: Reports None Skin Medical History: Reports None Psychiatric Medical History: Reports: Hx Anxiety, Other - Panic attacks Traumatic Medical History: Reports: None Infectious Medical History: Reports: None Past Surgical History: Reports: Hx Myringotomy - Immunizations Immunizations up to date: Yes Hx Diphtheria, Pertussis, Tetanus Vaccination: Yes Review of Systems - Review of Systems Constitutional: No symptoms reported EENT: No symptoms reported Cardiovascular: Dizziness Respiratory: No symptoms reported Gastrointestinal: No symptoms reported Genitourinary: No symptoms reported Female Genitourinary: No symptoms reported Musculoskeletal: No symptoms reported Skin: No symptoms reported Hematologic/Lymphatic: No symptoms reported Neurological/Psychological: Headaches -: Yes All other systems reviewed and negative Physical Exam - Vital signs Vitals: Temp Pulse Resp BP Pulse Ox 98.4 F 80 18 125/62 100 04/08/20 19:58 04/08/20 19:58 04/08/20 19:58 04/08/20 19:58 04/08/20 19:58 Interpretation: Normal - General General appearance: Appears well, Alert - HEENT Head: Normocephalic, Atraumatic Eyes: Normal Cornea: Normal Eyelashes: Normal Pupils: PERRL Fundascopic: Normal Nerve palsy: Yes Visual casey normal: Yes Ears: Normal External canal: Normal Tympanic membrane: Normal Sinus: Normal Nasal: Normal Mouth/Lips: Normal Mucous membranes: Normal Pharynx: Normal Neck: Normal - Respiratory Respiratory status: No respiratory distress Chest status: Nontender Breath sounds: Normal Chest palpation: Normal - Cardiovascular Rhythm: Regular Heart sounds: Normal auscultation Murmur: No - Abdominal Inspection: Normal Distension: No distension Bowel sounds: Normal Tenderness: Nontender Organomegaly: No organomegaly - Back Back: Normal, Nontender - Extremities General upper extremity: Normal inspection, Nontender, Normal color, Normal ROM, Normal temperature General lower extremity: Normal inspection, Nontender, Normal color, Normal ROM, Normal temperature, Normal weight bearing. No: Mariela's sign - Neurological Neuro grossly intact: Yes Cognition: Normal Orientation: AAOx4 [place] Coma Scale Eye Opening: Spontaneous [place] Coma Scale Verbal: Oriented [place] Coma Scale Motor: Obeys Commands Ashley Coma Scale Total: 15 Speech: Normal Cranial nerves: Normal Cerebellar coordination: Normal Motor strength normal: LUE, RUE, LLE, RLE Additional motor exam normals: Equal cotton feeder Babinski reflex: Normal (flexor plantar) Sensory: Normal - Psychological Associated symptoms: Anxious - Skin Skin Temperature: Warm Skin Moisture: Dry Skin Color: Normal Course - Re-evaluation Re-evalutation: 04/08/20 20:44 After performing a Medical Screening Examination, I estimate there is LOW risk for ACUTE GLAUCOMA, TEMPORAL ARTERITIS, MENINGITIS, INCRANIAL HEMORRHAGE, or ISCHEMIC STROKE thus I consider the discharge disposition reasonable. I have reevaluated this patient multiple times and no significant life threatening changes are noted. The patient and I have discussed the diagnosis and risks, and we agree with discharging home with close follow-up with the understanding that symptoms and presentations can change. We also discussed returning to the Emergency Department immediately if new or worsening symptoms occur. We have discussed the symptoms which are most concerning (e.g., changing or worsening symptoms, new numbness or weakness, vomiting, fever) that necessitate immediate return. - Vital Signs Vital signs: Temp Pulse Resp BP Pulse Ox 98.4 F 80 18 125/62 100 04/08/20 19:58 04/08/20 19:58 04/08/20 19:58 04/08/20 19:58 04/08/20 19:58 Discharge - Discharge Clinical Impression: Headache Qualifiers: Headache type: unspecified Headache chronicity pattern: unspecified pattern Intractability: not intractable Qualified Code(s): R51.9 - Headache, unspecified Condition: Stable Disposition: HOME, SELF-CARE Additional Instructions: HEADACHE: The physician does not feel that the headache you are experiencing has a serious underlying cause. Most headaches are due to emotional stress, with resultant muscle tension (tension headache). Occasionally, headaches are secondary to changes in the blood vessels of the scalp (vascular headache and migraine headache). Sometimes, a headache is the first symptom of another developing illness, such as a viral infection. You have no evidence of stroke, bleeding, meningitis, or other serious cause of your headache. The treatment of headaches varies with the severity and cause of the pain. Not all headaches need pain shots. In fact, there is evidence that using narcotics for headaches may make them worse in the long run. The physician will determine the therapy that's in your best interest. If you develop a fever, if the headache is different from any you've previously experienced, or if the headache progressively worsens, then call your physician at once or go to the emergency room. USE OF DIPHENHYDRAMINE: Diphenhydramine (Benadryl) is an antihistamine and has been recommended to help treat your headache and to prevent side effects of other medications used t o treat headaches. The medication can be repeated four times daily. Age Elixir (12.5 mg/tsp) 25 mg pill adult 1-2 tabs Antihistamines may cause drowsiness, especially with the first dose. Do not operate machinery or drive while under the effects of the medication. Do not combine the medication with alcohol, or with any other medication without talking to your doctor. COMPAZINE FOR HEADACHE: You have received therapy for headaches, Compazine. This treatment is dramatically successful in relieving the headache in about 50 percent of cases. When it works, it provides a rapid method of eliminating the headache without resorting to narcotics (and the problems associated with them). Most patients still feel fully alert after the Compazine, but others may be slightly drowsy. It's best not to drive or work with machinery for six to eight hours. Do not take alcohol or other medication unless you discuss it with the doctor. If you develop tightness and spasms in your muscles, especially the neck and tongue, you should return. This is a side effect which can be treated. FOLLOW-UP CARE: If you have been referred to a physician for follow-up care, call the physicians office for an appointment as you were instructed or within the next two days. If you experience worsening or a significant change in your symptoms, notify the physician immediately or return to the Emergency Department at any time for re-evaluation. Prescriptions: Prochlorperazine Maleate [Compazine 10 mg Tablet] 10 mg PO Q6HP PRN #10 tablet PRN Reason: Forms: Smoking Cessation Education Referrals: CRISTELA ORDOÑEZ MD [ACTIVE STAFF] - Follow up as needed [facility] [Provider Group] - Follow up as needed [facility] [Provider Group] - Follow up as needed [facility] [Provider Group] - Follow up as needed [facility] [Provider Group] - Follow up as needed [facility] [Provider Group] - Follow up as needed JAMES KRAUSE MD [NO LOCAL MD] - Follow up as needed
== END 2020-04-08 20:45 | disposition home or self-care (01) ==
LOC: ER 19:53
DX: R51.9 Headache, unspecified (principal); R20.2 Paresthesia of skin; R42 Dizziness and giddiness; F17.210 Nicotine dependence, cigarettes, uncomplicated
CPT/HCPCS: 99283; S0183

== ENCOUNTER 2020-05-06 18:22 | Emergency (ER) | payer BC ==
--- NOTE | 2020-05-06 18:33 | ER Document Report ---
ED Medical Screen (RME) - General Chief Complaint: Headache Stated Complaint: HEADACHE Time Seen by Provider: 05/06/20 18:29 Mode of Arrival: Ambulatory Information source: Patient Notes: 20-year-old female presented to ED with continued headache. She was seen about a month ago for the same problem. She states she has been trying to get a primary doctor since then. She states she has been calling and calling and nobody will see her everybody's appointments are too booked up. She states she is continued to have a headache. She states she did get relief that night went to sleep but has not had any relief since then. We did with Compazine Benadryl and Toradol IV last time. I did send her home with a prescription for Compazine but she states she did not take any of it since then. I have ordered blood and urine this time and she will be seen by another provider. I have greeted and performed a rapid initial assessment of this patient. A comprehensive ED assessment and evaluation of the patient, analysis of test results and completion of medical decision making process will be conducted by an additional ED providers. TRAVEL OUTSIDE OF THE [place] IN LAST 30 DAYS: No - Related Data Allergies/Adverse Reactions: No Known Allergies Allergy (Verified 03/17/19 15:29) Past Medical History Neurological Medical History: Reports: Hx Migraine Renal/ Medical History: Denies: Hx Peritoneal Dialysis Psychiatric Medical History: Reports: Hx Anxiety Past Surgical History: Reports: Hx Myringotomy - Immunizations Immunizations up to date: Yes Hx Diphtheria, Pertussis, Tetanus Vaccination: Yes Physical Exam - Vital signs Vitals: Temp Pulse Resp BP Pulse Ox 98.7 F 97 18 139/85 H 99 05/06/20 18:29 05/06/20 18:29 05/06/20 18:29 05/06/20 18:29 05/06/20 18:29 Course - Vital Signs Vital signs: Temp Pulse Resp BP Pulse Ox 98.7 F 97 18 139/85 H 99 05/06/20 18:29 05/06/20 18:29 05/06/20 18:29 05/06/20 18:29 05/06/20 18:29
[2020-05-06] MEDS ORDERED: KETOROLAC TROMETHAMINE INJ/PF 30 MG/1 ML SDV IV ONE (19:01)
[2020-05-06] MEDS ORDERED: DIPHENHYDRAMINE HCL 50 MG/ML VIAL IV ONE (19:01)
[2020-05-06] MEDS ORDERED: PROCHLORPERAZINE EDISYLATE INJ 10 MG/2 ML VIAL IV ONE (19:01)
--- NOTE | 2020-05-06 19:35 | RADIOLOGY REPORT (SQ) ---
EXAM DESCRIPTION: CT HEAD WITHOUT IMAGES COMPLETED DATE/TIME: 05/06/2020 7:20 pm REASON FOR STUDY: headache worst ever COMPARISON: 2008 TECHNIQUE: Axial images acquired through the brain without intravenous contrast. Images reviewed wi th bone, brain and subdural windows. Additional sagittal and coronal reconstructions were generated. Images stored on PACS. All CT scanners at this facility use dose modulation, iterative reconstruction, and/or weight based d osing when appropriate to reduce radiation dose to as low as reasonably achievable (ALARA). [facility]: Dose Right [facility]: CareDose [facility]: Dose Right [facility]: Teradose 4D [facility]: Smart SA Ignite RADIATION DOSE: CT Rad equipment meets quality standard of care and radiation dose reduction techniq ues were employed. CTDIvol: 53.2 mGy. DLP: 937 mGy-cm. mGy. LIMITATIONS: None. FINDINGS: VENTRICLES: Normal size and contour. CEREBRUM: No masses. No hemorrhage. No midline shift. No evidence for acute infarction. Normal gra y/white matter differentiation. No areas of low density in the white matter. CEREBELLUM: No masses. No hemorrhage. No alteration of density. No evidence for acute infarction. EXTRAAXIAL SPACES: No fluid collections. No masses. ORBITS AND GLOBE: No intra- or extraconal masses. Normal contour of globe without masses. CALVARIUM: No fracture. PARANASAL SINUSES: No fluid or mucosal thickening. SOFT TISSUES: No mass or hematoma. OTHER: No other significant finding. IMPRESSION: NORMAL BRAIN CT WITHOUT CONTRAST. EVIDENCE OF ACUTE STROKE: NO. COMMENT: Quality ID # [id number]: Final reports with documentation of one or more dose reduction techniques (e.g., Automated exposure control, adjustment of the mA and/or kV according to patient size, use of iterative reconstruction technique) TECHNICAL DOCUMENTATION: JOB ID: [id number] 2010 [employer]- All Rights Reserved Reading location - IP/workstation name: [email or web address]
--- NOTE | 2020-05-06 20:23 | ER Document Report ---
ED Headache - General Chief Complaint: Headache Stated Complaint: HEADACHE Time Seen by Provider: 05/06/20 18:29 Primary Care Provider: PUMA HENNESSY MD [COMMUNITY BASED STAFF] - Follow up as needed Mode of Arrival: Ambulatory Information source: Patient Notes: Patiet presents with intermittent headaches over the last month. Denies photophobia, reports phonophobia and occasional nausea. Denies headache reaching peak intensity quickly. Reports increased stress lately. Denies hx of headaches in the past. No fevers/chilss or other signs of illness. TRAVEL OUTSIDE OF THE [place] IN LAST 30 DAYS: No - Related Data Allergies/Adverse Reactions: No Known Allergies Allergy (Verified 03/17/19 15:29) Past Medical History - General Information source: Patient - Social History Smoking Status: Current Every Day Smoker Chew tobacco use (# tins/day): No Drug Abuse: None Family History: Reviewed & Not Pertinent Renal/ Medical History: Denies: Hx Peritoneal Dialysis Psychiatric Medical History: Reports: Hx Anxiety Past Surgical History: Reports: Hx Myringotomy - Immunizations Immunizations up to date: Yes Hx Diphtheria, Pertussis, Tetanus Vaccination: Yes Review of Systems - Review of Systems Neurological/Psychological: Headaches -: Yes All other systems reviewed and negative Physical Exam - Vital signs Vitals: Temp Pulse Resp BP Pulse Ox 98.7 F 97 18 139/85 H 99 05/06/20 18:29 05/06/20 18:29 05/06/20 18:29 05/06/20 18:29 05/06/20 18:29 Interpretation: Normal - General General appearance: Appears well, Alert - HEENT Head: Normocephalic, Atraumatic Eyes: Normal Pupils: PERRL - Respiratory Respiratory status: No respiratory distress Chest status: Nontender Breath sounds: Normal Chest palpation: Normal - Cardiovascular Rhythm: Regular Heart sounds: Normal auscultation Murmur: No - Abdominal Inspection: Normal Distension: No distension Bowel sounds: Normal Tenderness: Nontender Organomegaly: No organomegaly - Back Back: Normal, Nontender - Extremities General upper extremity: Normal inspection, Nontender, Normal color, Normal ROM, Normal temperature General lower extremity: Normal inspection, Nontender, Normal color, Normal ROM, Normal temperature, Normal weight bearing. No: Mariela's sign - Neurological Neuro grossly intact: Yes Cognition: Normal Orientation: AAOx4 [place] Coma Scale Eye Opening: Spontaneous [place] Coma Scale Verbal: Oriented [place] Coma Scale Motor: Obeys Commands [place] Coma Scale Total: 15 Speech: Normal Motor strength normal: LUE, RUE, LLE, RLE Sensory: Normal - Psychological Associated symptoms: Normal affect, Normal mood - Skin Skin Temperature: Warm Skin Moisture: Dry Skin Color: Normal Course - Re-evaluation Re-evalutation: CT obtained due to new onset headaches over the last month. CT negative for any acute findings. Pt reports headache resolved after headache medications. Will d/dc home with return precautions. - Vital Signs Vital signs: Temp Pulse Resp BP Pulse Ox 98.6 F 88 17 131/78 H 99 05/06/20 20:33 05/06/20 20:33 05/06/20 20:33 05/06/20 20:33 05/06/20 20:33 Discharge - Discharge Clinical Impression: Headache Qualifiers: Headache type: unspecified Headache chronicity pattern: chronic headache Intractability: not intractable Qualified Code(s): R51.9 - Headache, unspecified Condition: Stable Disposition: HOME, SELF-CARE Additional Instructions: You were seen today for a migraine headache. Please follow-up with your primary care doctor regarding today's ED visit. Return to emergency department immediately if you develop a headache that gets to its maximum severity within 20 minutes of onset, you pass out, you develop weakness, numbness, changes in your vision, become unable to keep any fluids down for more than 12 hours, or develop a fever greater than 100.4 degrees Fahrenheit. If you develop a similar migraine headache in the future I recommend that you immediately take 600 mg of ibuprofen and 50 mg of Benadryl and go to sleep as quickly as possible. This can often prevent your migraine headache from becoming severe. Please follow-up with primary care. I have given you the phone number of one in the area who is excellent and I believe is taking new patients. Forms: Return to Work Referrals: PUMA HENNESSY MD [COMMUNITY BASED STAFF] - Follow up as needed
[2020-05-06 20:34] VITALS: BP 131/78
== END 2020-05-06 20:33 | disposition home or self-care (01) ==
LOC: ER 18:22
DX: R51.9 Headache, unspecified (principal); R11.0 Nausea; F43.9 Reaction to severe stress, unspecified; F17.200 Nicotine dependence, unspecified, uncomplicated
CPT/HCPCS: 99285; 96374; 96375; 70450; J1200; J1885; J0780

== ENCOUNTER 2020-05-29 22:47 | Emergency (ER) | payer BC ==
--- NOTE | 2020-05-30 00:32 | ER Document Report ---
ED Medical Screen (RME) - General Chief Complaint: Difficulty Swallowing Stated Complaint: DIFFICULTY SWALLOWING Time Seen by Provider: 05/30/20 00:18 Notes: Patient presents to the ER for evaluation of what began as a tickle in the throat approximately 10 days ago. The patient states the tickle has progressively worsened and now causes her to have a dry cough. She states that she is having difficulty with swallowing solid foods. She states she is able to tolerate the solid foods but that she feels like she may choke. She denies shortness of breath. She denies fever. She denies chills or body aches. She denies nausea or vomiting. She denies abdominal pain. She denies diarrhea. Exam: CONSTITUTIONAL: Well appearing in no acute distress HENT: Normocephalic, atraumatic, moist mucus membranes. No obvious foreign bodies in the throat. NECK: No obvious swelling, normal range of motion PULMONARY: Normal chest rise and fall, no respiratory distress or stridor CARDIOVASCULAR: Regular rate, distal extremities are warm and well perfused I have greeted and performed a rapid initial assessment of this patient. A comprehensive ED assessment and evaluation of the patient, analysis of test results and completion of the medical decision making process will be conducted by additional ED providers. Dictation of this chart was performed using voice recognition software; therefore, there may be some unintended grammatical erro rs. TRAVEL OUTSIDE OF THE [place] IN LAST 30 DAYS: No - Related Data Allergies/Adverse Reactions: No Known Allergies Allergy (Verified 03/17/19 15:29) Past Medical History - Social History Frequency of alcohol use: None Drug Abuse: None Neurological Medical History: Reports: Hx Migraine Renal/ Medical History: Denies: Hx Peritoneal Dialysis Psychiatric Medical History: Reports: Hx Anxiety Past Surgical History: Reports: Hx Myringotomy - Immunizations Immunizations up to date: Yes Hx Diphtheria, Pertussis, Tetanus Vaccination: Yes Physical Exam - Vital signs Vitals: Temp Pulse Resp BP Pulse Ox 98.3 F 76 16 137/73 H 99 05/29/20 23:06 05/29/20 23:06 05/29/20 23:06 05/29/20 23:06 05/29/20 23:06 Course - Vital Signs Vital signs: Temp Pulse Resp BP Pulse Ox 98.3 F 76 16 137/73 H 99 05/29/20 23:06 05/29/20 23:06 05/29/20 23:06 05/29/20 23:06 05/29/20 23:06
[2020-05-30 01:05] LABS: ABSOLUTE EOSINOPHILS # (AUTO) 0.2 10^3/uL (0.0-0.6); ABSOLUTE LYMPHOCYTES (AUTO) 3.1 10^3/uL (0.5-4.7); ABSOLUTE MONOCYTES (AUTO) 0.5 10^3/uL (0.1-1.4); ABSOLUTE NEUT (AUTO) 3.7 10^3/uL (1.7-8.2); BASOPHILS % (AUTO) 0.6 % (0-2); EOSINOPHILS % (AUTO) 2.3 % (0-6); HEMATOCRIT 39.2 % (36.0-47.0); HEMOGLOBIN 13.9 g/dL (12.0-15.5); MEAN CORPUSCULAR HEMOGLOBIN 31.2 pg (27.0-33.4); MEAN CORPUSCULAR HGB CONC 35.6 g/dL (32.0-36.0); MEAN CORPUSCULAR VOLUME 88 fl (80-97); MONOCYTES % (AUTO) 6.9 % (3-13); PLATELET COUNT 277 10^3/uL (150-450); RED BLOOD COUNT 4.46 10^6/uL (3.72-5.28); RED CELL DISTRIBUTION WIDTH 12.1 % (11.5-14.0); SEGMENTED NEUTROPHILS % (AUTO) 49.2 % (42-78); TOTAL CELLS COUNTED % (AUTO) 100 %; WHITE BLOOD COUNT 7.6 10^3/uL (4.0-10.5)
[2020-05-30 01:25] LABS: ANION GAP 10 (5-19); BLOOD UREA NITROGEN 12 mg/dL (7-20); CALCIUM 9.8 mg/dL (8.4-10.2); CARBON DIOXIDE 26 mmol/L (22-30); CHLORIDE 104 mmol/L (98-107); GLUCOSE 108 mg/dL (75-110); POTASSIUM 4.2 mmol/L (3.6-5.0)
[2020-05-30] MEDS ORDERED: LIDOCAINE 2% VISCOUS SOLN 15 ML UDCUP PO ONE (01:51)
--- NOTE | 2020-05-30 01:55 | ER Document Report ---
ED General - General Chief Complaint: Difficulty Swallowing Stated Complaint: DIFFICULTY SWALLOWING Time Seen by Provider: 05/30/20 00:18 Primary Care Provider: KAROLINA HENNESSY NP [Primary Care Provider] - Follow up as needed Notes: Patient is a 20-year-old female who comes emergency department for chief complaint of difficulty swallowing. She states that when she swallows she feels like something is stuck in her throat and she feels like it is difficult to swallow solid foods as a result. She is still able to do so but she has a discomfort and states she feels like she might choke. She denies sore throat, congestion, cough, shortness of breath, fever/chills. She denies abdominal pain. She is currently on her menstrual cycle. She takes omeprazole for GERD and states she gets bad reflux that she drinks caffeine or spicy food but denies symptoms in regards to this otherwise. She denies any other medications. She denies any other medical history. TRAVEL OUTSIDE OF THE [place] IN LAST 30 DAYS: No - Related Data Allergies/Adverse Reactions: No Known Allergies Allergy (Verified 03/17/19 15:29) Past Medical History - General Information source: Patient - Social History Smoking Status: Current Every Day Smoker Frequency of alcohol use: None Drug Abuse: None Lives with: Family Family History: Reviewed & Not Pertinent Patient has homicidal ideation: No Neurological Medical History: Reports: Hx Migraine Renal/ Medical History: Denies: Hx Peritoneal Dialysis Psychiatric Medical History: Reports: Hx Anxiety Past Surgical History: Reports: Hx Myringotomy - Immunizations Immunizations up to date: Yes Hx Diphtheria, Pertussis, Tetanus Vaccination: Yes Review of Systems - Review of Systems Constitutional: No symptoms reported EENT: See HPI Cardiovascular: No symptoms reported Respiratory: No symptoms reported Gastrointestinal: See HPI Genitourinary: No symptoms reported Female Genitourinary: No symptoms reported Musculoskeletal: No symptoms reported Skin: No symptoms reported Hematologic/Lymphatic: No symptoms reported Neurological/Psychological: No symptoms reported Physical Exam - Vital signs Vitals: Temp Pulse Resp BP Pulse Ox 98.3 F 76 16 137/73 H 99 05/29/20 23:06 05/29/20 23:06 05/29/20 23:06 05/29/20 23:06 05/29/20 23:06 - Notes Notes: GENERAL: Alert, interacts well. No acute distress. HEAD: Normocephalic, atraumatic. EYES: Pupils equal, round, and reactive to light. Extraocular movements intact. ENT: Oral mucosa moist, tongue midline. Oropharynx unremarkable. Airway patent. Nares patent, sinuses non-tender, ear canals unremarkable, TM's intact. NECK: Full range of motion. Supple. Trachea midline. No lymphadenopathy. LUNGS: Clear to auscultation bilaterally, no wheezes, rales, or rhonchi. No respiratory distress. Non-tender chest wall. HEART: Regular rate and rhythm. No murmur ABDOMEN: Soft, non-tender. Non-distended. Bowel sounds present in all 4 quadra nts. GENITOURINARY: Deferred EXTREMITIES: Moves all 4 extremities spontaneously. No edema, normal radial and dorsalis pedis pulses bilaterally. No cyanosis. BACK: no cervical, thoracic, lumbar midline tenderness. No saddle anesthesia, normal distal neurovascular exam. Moves all extremities in full range of motion. NEUROLOGICAL: Alert and oriented x3. Normal speech. Cranial nerves II through XII grossly intact. Strength 5/5 in all extremities. PSYCH: Very talkative and slightly anxious, otherwise unremarkable SKIN: Warm, dry, normal turgor. No rashes or lesions noted. Course - Re-evaluation Re-evalutation: Patient's oropharyngeal exam and neck exam are completely unremarkable without any signs of infection. Patient does not speak in a muffled voice, tolerate secretions without any difficulty. I had patient drink viscous lidocaine and this significantly improved her symptoms as well. Patient then tolerated p.o. without any difficulty whatsoever. No signs of obstruction. Very low suspicion of mass or concerning infection based on this as well. Unremarkable laboratory work-up. I canceled the CT of the soft tissues of the neck ordered in triage as a result. Discussed with patient. She was extremely relieved after we discussed these options, she states that she "just started getting really anxious about the whole swallowing thing". There does appear to be an anxiety component as well. However because of patient's GERD history and symptoms she was placed on Carafate and famotidine, I discussed expectations and precautions, discussed follow-up instructions. Patient states appreciation and agreement. Stable, well-appearing, asymptomatic at time of discharge. - Vital Signs Vital signs: Temp Pulse Resp BP Pulse Ox 98.8 F 72 16 132/82 H 99 05/30/20 02:39 05/30/20 02:39 05/30/20 02:39 05/30/20 02:39 05/30/20 02:39 - Laboratory Result Diagrams: 05/30/20 00:54 05/30/20 00:54 Discharge - Discharge Clinical Impression: Dysphagia Qualifiers: Dysphagia type: esophageal phase Qualified Code(s): R13.10 - Dysphagia, unspecified Condition: Stable Disposition: HOME, SELF-CARE Additional Instructions: Your strep test is negative, your laboratory tests are normal. Based on your evaluation I believe that you have inflammation or abrasion of the upper part of your gastrointestinal tract at the esophagus. I recommend the Carafate and famotidine medications along with your current prescription. Avoid things that cause inflammation and slow the healing (caffeine, alcohol, smoking, spicy food, NSAIDs). Follow-up with primary care for additional evaluation and management. Return if you worsen including vomiting, severe pain in your chest, inability to swallow, or any other concerning symptoms. Prescriptions: Sucralfate [Carafate 1 gm Tablet] 1 gm PO QID #20 tablet Famotidine [Pepcid 20 mg Tablet] 20 mg PO BID #14 tablet Referrals: KAROLINA HENNESSY, TAJ [Primary Care Provider] - Follow up as needed
[2020-05-30 02:41] VITALS: BP 132/82
== END 2020-05-30 02:39 | disposition home or self-care (01) ==
LOC: ER 22:47
DX: K21.9 Gastro-esophageal reflux disease without esophagitis (principal); R13.10 Dysphagia, unspecified; R09.89 Other specified symptoms and signs involving the circulatory and respiratory systems; F17.200 Nicotine dependence, unspecified, uncomplicated; Z79.899 Other long term (current) drug therapy
CPT/HCPCS: 99283; 36415; 87070; 87880; 85025; 80048; J3490

== ENCOUNTER 2020-06-09 13:54 | Emergency (ER) | payer BC ==
--- NOTE | 2020-06-09 14:30 | ER Document Report ---
ED Medical Screen (RME) - General Stated Complaint: RIGHT LOWER ABDOMINAL PAIN Primary Care Provider: KAROLINA HENNESSY NP [Primary Care Provider] - Follow up as needed TRAVEL OUTSIDE OF THE [place] IN LAST 30 DAYS: No - HPI Notes: 06/09/20 14:25 Rapid Medical Exam HPI: Pt is 20yo female c/o RLQ pain since last night. Dull nonradiating pain, worse w/ movement and when bearing down to use bathroom. pain resolved if she sits completely still. normal BM and urination. LMP 05/28. no control. No fever, chills, n/v/d, cp, sob, vaginal discharge. no hx of kidney stones. Physical Exam: GENERAL: Well-appearing, well-nourished and in no acute distress. HEAD: Atraumatic, normocephalic. ENT: Moist mucous membranes. RESP: Respirations even and unlabored CV- Regular rate. NEURO: No focal neurological deficits. Moves all extremities spontaneously and on command. My involvement in this patients care was limited to a rapid initial assessment. A comprehensive ED assessment and evaluation of the patient, analysis of test results, treatment, and completion of the medical decision making process will be performed by other ER providers. - Related Data Allergies/Adverse Reactions: No Known Allergies Allergy (Verified 06/09/20 14:25) Past Medical History Neurological Medical History: Reports: Hx Migraine Renal/ Medical History: Denies: Hx Peritoneal Dialysis GI Medical History: Reports: Hx Gastroesophageal Reflux Disease Psychiatric Medical History: Reports: Hx Anxiety Past Surgical History: Reports: Hx Myringotomy - Immunizations Immunizations up to date: Yes Hx Diphtheria, Pertussis, Tetanus Vaccination: Yes Physical Exam - Vital signs Vitals: Temp Pulse Resp BP Pulse Ox 98.1 F 77 18 117/68 100 06/09/20 14:14 06/09/20 14:14 06/09/20 14:14 06/09/20 14:14 06/09/20 14:14 Course - Vital Signs Vital signs: Temp Pulse Resp BP Pulse Ox 98.1 F 77 18 117/68 100 06/09/20 14:14 06/09/20 14:14 06/09/20 14:14 06/09/20 14:14 06/09/20 14:14 Doctor's Discharge - Discharge Referrals: KAROLINA HENNESSY NP [Primary Care Provider] - Follow up as needed
[2020-06-09 15:12] LABS: ABSOLUTE EOSINOPHILS # (AUTO) 0.1 10^3/uL (0.0-0.6); ABSOLUTE LYMPHOCYTES (AUTO) 2.7 10^3/uL (0.5-4.7); ABSOLUTE MONOCYTES (AUTO) 0.5 10^3/uL (0.1-1.4); ABSOLUTE NEUT (AUTO) 4.5 10^3/uL (1.7-8.2); BASOPHILS % (AUTO) 0.5 % (0-2); EOSINOPHILS % (AUTO) 1.5 % (0-6); HEMATOCRIT 39.9 % (36.0-47.0); LYMPHOCYTES % (AUTO) 34.2 % (13-45); MEAN CORPUSCULAR HEMOGLOBIN 30.6 pg (27.0-33.4); MEAN CORPUSCULAR HGB CONC 35.1 g/dL (32.0-36.0); MEAN CORPUSCULAR VOLUME 87 fl (80-97); MONOCYTES % (AUTO) 6.5 % (3-13); PLATELET COUNT 282 10^3/uL (150-450); RED BLOOD COUNT 4.58 10^6/uL (3.72-5.28); SEGMENTED NEUTROPHILS % (AUTO) 57.3 % (42-78); TOTAL CELLS COUNTED % (AUTO) 100 %; WHITE BLOOD COUNT 7.8 10^3/uL (4.0-10.5)
[2020-06-09 15:36] LABS: ALBUMIN 4.7 g/dL (3.5-5.0); ALKALINE PHOSPHATASE 44 U/L (38-126); ANION GAP 7 (5-19); ASPARTATE AMINO TRANSFERASE 21 U/L (14-36); BILIRUBIN,TOTAL 0.4 mg/dL (0.2-1.3); BLOOD UREA NITROGEN 8 mg/dL (7-20); CALCIUM 9.9 mg/dL (8.4-10.2); CARBON DIOXIDE 28 mmol/L (22-30); CHLORIDE 104 mmol/L (98-107); GLUCOSE 82 mg/dL (75-110); POTASSIUM 3.8 mmol/L (3.6-5.0); TOTAL PROTEIN 7.5 g/dL (6.3-8.2)
--- NOTE | 2020-06-09 16:05 | ER Document Report ---
ED General - General Chief Complaint: Abdominal Pain Stated Complaint: RIGHT LOWER ABDOMINAL PAIN Time Seen by Provider: 06/09/20 16:04 Primary Care Provider: KAROLINA HENNESSY NP [Primary Care Provider] - Follow up as needed TRAVEL OUTSIDE OF THE [place] IN LAST 30 DAYS: No - HPI Notes: 1-year-old female presents to ED for evaluation of right lower quadrant abdominal pain. Reports it began last night and has been improving throughout the course the day. Reports it is dull and aching but sometimes worsens with movement. States that it does increase with straining to urinate or defecate. States her last bowel movement was 3 hours ago. Denies any difficulties moving her bowels or urinating. Denies fever chills. Denies nausea or vomiting. Reports that her last menstrual cycle was 05/28/2020. Patient is not on control and is sexually active. Denies abnormal vaginal bleeding or discharge. Denies concern for . Patient denies other complaints at this time. - Related Data Allergies/Adverse Reactions: No Known Allergies Allergy (Verified 06/09/20 14:25) Past Medical History - Social History Smoking Status: Current Every Day Smoker Frequency of alcohol use: None Drug Abuse: None Family History: Reviewed & Not Pertinent - Medical History Medical History: Negative Neurological Medical History: Reports: Hx Migraine Renal/ Medical History: Denies: Hx Peritoneal Dialysis GI Medical History: Reports: Hx Gastroesophageal Reflux Disease Psychiatric Medical History: Reports: Hx Anxiety Past Surgical History: Reports: Hx Myringotomy - Immunizations Immunizations up to date: Yes Hx Diphtheria, Pertussis, Tetanus Vaccination: Yes Review of Systems - Review of Systems Notes: Constitutional: Negative for fever. HENT: Negative for sore throat. Eyes: Negative for visual changes. Cardiovascular: Negative for chest pain. Respiratory: Negative for shortness of breath. Gastrointestinal: + for abdominal pain, denies vomiting or diarrhea. Genitourinary: Negative for dysuria. Musculoskeletal: Negative for back pain. Skin: Negative for rash. Neurological: Negative for headaches, weakness or numbness. 10 point ROS negative except as marked above and in HPI. Physical Exam - Vital signs Vitals: Temp Pulse Resp BP Pulse Ox 98.1 F 77 18 117/68 100 06/09/20 14:14 06/09/20 14:14 06/09/20 14:14 06/09/20 14:14 06/09/20 14:14 General: No acute distress. Alert and oriented x3. Sitting comfortably in a stretcher. Skin: No jaundice, pallor, petechiae, or rashes. Warm and dry. Heart: Regular rate and rhythm. S1,S2. No murmurs, rubs, or gallops. Lungs: Clear to ausculation bilaterally. No wheezes, rhonchi, rales. Equal chest expansion. No retractions. Abdomen: Soft, pain with deep palpation to right lower abdomen, nondistended. Positive bowel sounds in all 4 quadrants. No masses. No CVA tenderness bilaterally. Genitourinary performed with female women designer present: External vagina without rashes or lesion. Speculum was inserted, cultures were taken. Cervical os closed without lesion or discharge. No blood or masses in the vaginal vault. No cervical motion tenderness. No adnexal tenderness or masses. Back: No midline spinal TTP. No paraspinous muscular TTP. Neuro: GCS 15. Moving all extremities without discomfort. Psych: Mood and affect appropriate. Course - Re-evaluation Re-evalutation: 06/11/20 22:19 20-year-old female presents to ED for evaluation of abdominal pain starting yesterday evening. Patient states it is worse with range of motion. Denies bleeding or discharge. Denies history of pelvic pathology. Patient was evaluated with labs which show no evidence of acute findings. No urinary infection or electrolyte abnormalities are noted. Patient was evaluated with a wet prep as well as gonorrhea and Chlamydia testing. GC and Chlamydia is pending however wet prep is negative. Patient was also evaluated with Doppler ultrasound of the pelvis. This did show a right-sided ovarian cyst. Patient was advised of these findings. I do believe this is most likely the cause of her symptoms. She is advised to follow-up closely with [facility] and have an ultrasound repeated in 6 weeks at a different point in her menstrual cycle. Patient is in agreement with this course of management. Advised she may use anti-inflammatory medications for pain management. Understands to return if she develops any new or worsening symptoms. Patient is in agreement with her care plan. - Vital Signs Vital signs: Temp Pulse Resp BP Pulse Ox 98.3 F 70 17 124/74 100 06/09/20 19:54 06/09/20 19:54 06/09/20 19:54 06/09/20 19:54 06/09/20 19:54 - Laboratory Results Result Diagrams: 06/09/20 14:57 06/09/20 14:57 Critical Laboratory Results Reviewed: No Critical Results - Radiology Results Critical Radiology Results Reviewed: No Critical Results Discharge - Discharge Clinical Impression: Abdominal pain Qualifiers: Abdominal location: lower abdomen, unspecified Qualified Code(s): R10.30 - Lower abdominal pain, unspecified Ovarian cyst Qualifiers: Laterality: right Qualified Code(s): N83.201 - Unspecified ovarian cyst, right side Condition: Stable Disposition: HOME, SELF-CARE Instructions: Abdominal Pain ([facility]), Ovarian Cyst ([facility]) Prescriptions: Ketorolac Tromethamine [Toradol 10 mg Tablet] 10 mg PO Q8H PRN #15 tablet PRN Reason: Forms: Return to Work Referrals: KAROLINA HENNESSY NP [Primary Care Provider] - Follow up as needed
[2020-06-09 18:55] LABS: T.VAGINALIS (WET MOUNT) NO TRICHOMONAS SEEN; WBCS (WET MOUNT) NO WBCS SEEN; YEAST (WET MOUNT) NO YEAST SEEN
--- NOTE | 2020-06-09 19:05 | RADIOLOGY REPORT (SQ) ---
EXAM DESCRIPTION: U/S NON OB PEL TV W/DOPPLER IMAGES COMPLETED DATE/TIME: 06/09/2020 6:39 pm REASON FOR STUDY: r.o torsion/ right side COMPARISON: None. TECHNIQUE: Dynamic and static grayscale images acquired of the pelvis via transvaginal approach and recorded on PACS. Additional selected color Doppler and spectral images recorded. LIMITATIONS: None. FINDINGS: UTERUS: Contour normal. No mass. ENDOMETRIAL STRIPE: No focal or generalized thickening. No masses. CERVIX: No nabothian cysts. A small amount of fluid is present in the cervical canal. RIGHT OVARY AND DOPPLER: The right ovary measures 2.7 x 2.5 x 1.7 cm. A 1.8 x 1.3 cm crenulated foll icle is present along with a smaller slightly thick-walled cystic structure. Normal vascular flow wa s seen in the adjacent ovarian parenchyma. LEFT OVARY AND DOPPLER: Normal size. No worrisome masses. Normal arterial vascular flow without evide nce for torsion. FREE FLUID: A small amount of free fluid is present in the cul-de-sac. OTHER: No other significant finding. MEASUREMENTS: UTERUS: 8.3 x 3.8 x 3.5 cm ENDOMETRIAL STRIPE: 11 mm RIGHT OVARY: 2.7 x 2.5 x 1.7 cm (right ovarian volume equals 6.0 ml) LEFT OVARY: 3.0 x 2.6 x 1.9 cm (left ovarian volume equals 7.7 mL) IMPRESSION: Crenulated/involuting follicle in the right ovary. No ultrasonographic evidence for ova aura torsion. A small amount of fluid is present in the cervical canal as well as in the cul-de-sac. Otherwise, no rmal sonographic appearance of the left ovary and uterus. TECHNICAL DOCUMENTATION: JOB ID: [id number] 2010 [employer]- All Rights Reserved Rev Reading location - IP/workstation name: [email or web address]
[2020-06-09 19:57] VITALS: BP 124/74
[2020-06-09 20:22] LABS: CHLAM PCR NOT DETECTED (NOT DETECT)
== END 2020-06-09 19:54 | disposition home or self-care (01) ==
LOC: ER 13:54
DX: N83.201 Unspecified ovarian cyst, right side (principal); R10.30 Lower abdominal pain, unspecified; R10.31 Right lower quadrant pain; F17.200 Nicotine dependence, unspecified, uncomplicated
CPT/HCPCS: 36415; 76830; 80053; 81025; 83690; 84702; 85025; 87210; 87491; 87591; 93976; 99284

== ENCOUNTER → 2020-06-21 | Outpatient (CLI) | payer BC ==
--- NOTE | 2020-06-21 10:48 | RADIOLOGY REPORT (SQ) ---
EXAM DESCRIPTION: BARIUM SWALLOW ESOPHAGUS IMAGES COMPLETED DATE/TIME: 06/21/2020 10:23 am REASON FOR STUDY: DYSPAGIA R13.10 DYSPHAGIA, UNSPECIFIED COMPARISON: None. TECHNIQUE: Under fluoroscopic guidance, patient ingested effervescent granules followed by thick and thin barium. Fluoroscopic spot images and routine radiographic images acquired and stored on PACS. 12 MM BARIUM TABLET GIVEN: No, patient was unable to swallow tablet. LIMITATIONS: None. FLUOROSCOPY TIME: FLUORO TIME: Fluoro time 1.2 minutes 5 images saved to PACS. FINDINGS: NEUROMUSCULAR COORDINATION OF SWALLOW: Normal. No aspiration. ESOPHAGEAL MOTILITY: Normal peristalsis. No esophageal spasm. ESOPHAGEAL MUCOSA: Normal mucosa without masses or ulceration. GASTRO-ESOPHAGEAL JUNCTION: No hiatal hernia or reflux. NON-GI TRACT STRUCTURES: No significant finding. OTHER: No other significant finding. IMPRESSION: NORMAL DOUBLE CONTRAST BARIUM SWALLOW. RECOMMENDATION: None COMMENT: None Quality ID [id number]: Final reports for procedures using fluoroscopy that document radiation exposure jacinto lisset, or exposure time and number of fluorographic images (if radiation exposure indices are not avail able) TECHNICAL DOCUMENTATION: JOB ID: [id number] 2010 [employer]- All Rights Reserved Reading location - IP/workstation name: [email or web address]
== END ==
LOC: RAD 10:03
PROVIDERS: ATTEND Family Medicine
DX: R13.10 Dysphagia, unspecified (principal)
CPT/HCPCS: 74220

== ENCOUNTER 2020-07-22 10:52 | Emergency (ER) | payer BC ==
--- NOTE | 2020-07-22 11:15 | ER Document Report ---
ED Medical Screen (RME) - General Chief Complaint: Dizziness Stated Complaint: DIZZINESS Time Seen by Provider: 07/22/20 11:08 Primary Care Provider: PUMA HENNESSY MD [Primary Care Provider] - Follow up as needed Mode of Arrival: Ambulatory Information source: Patient Notes: 20-year-old female presented to ED for complaint of dizziness. She states she has been dizzy for the last 3 days except for when she lies down on her right ear. She states she does smokes 10 cigarettes a day. She states she is current medical history of ear tubes wisdom teeth removed and anxiety. She states she did go recently to her primary care doctor because she had a funny feeling in her ear and they told her everything looked good. She does have minimal fluid in the right ear. The dizziness could be due to fluid in her ear but we will rule out other causes. I have greeted and performed a rapid initial assessment of this patient. A comprehensive ED assessment and evaluation of the patient, analysis of test results and completion of medical decision making process will be conducted by an additional ED providers. TRAVEL OUTSIDE OF THE [place] IN LAST 30 DAYS: No - Related Data Allergies/Adverse Reactions: No Known Allergies Allergy (Verified 06/09/20 14:25) Past Medical History - Social History Frequency of alcohol use: None Drug Abuse: None Neurological Medical History: Reports: Hx Migraine Renal/ Medical History: Denies: Hx Peritoneal Dialysis GI Medical History: Reports: Hx Gastroesophageal Reflux Disease Psychiatric Medical History: Reports: Hx Anxiety Past Surgical History: Reports: Hx Myringotomy - Immunizations Immunizations up to date: Yes Hx Diphtheria, Pertussis, Tetanus Vaccination: Yes Physical Exam - Vital signs Vitals: Temp Pulse Resp BP Pulse Ox 97.2 F 83 14 132/93 H 100 07/22/20 10:59 07/22/20 10:59 07/22/20 10:59 07/22/20 10:59 07/22/20 10:59 Course - Vital Signs Vital signs: Temp Pulse Resp BP Pulse Ox 97.2 F 83 14 132/93 H 100 07/22/20 10:59 07/22/20 10:59 07/22/20 10:59 07/22/20 10:59 07/22/20 10:59 Doctor's Discharge - Discharge Referrals: PUMA HENNESSY MD [Primary Care Provider] - Follow up as needed
[2020-07-22] MEDS ORDERED: MECLIZINE HCL 25 MG TABLET PO ONE (11:25)
--- NOTE | 2020-07-22 11:26 | ER Document Report ---
ED Dizziness/Weakness - General Chief Complaint: Dizziness Stated Complaint: DIZZINESS Time Seen by Provider: 07/22/20 11:08 Primary Care Provider: PUMA HENNESSY MD [Primary Care Provider] - Follow up as needed Mode of Arrival: Ambulatory Notes: CHIEF COMPLAINT: Dizziness for 2 to 3 days HPI: 20-year-old female presenting for dizziness with room spinning sensation for 3 days. Worse when she changes position. Has not had nausea or vomiting. Reports occasional blurred vision. Had a physical done 1 week ago by her PCP and reported some left ear discomfort. No fever. No chest pain. No shortness of breath. ROS: See HPI - all other systems were reviewed and are otherwise negative Constitutional: no fever Eyes: no drainage, occasional blurred vision ENT: no runny nose, no sore throat Cardiovascular: no chest pain Resp: no SOB, no cough GI: no vomiting, no diarrhea, no abdominal pain : no dysuria Integumentary: no rash Allergy: no hives Musculoskeletal: no extremity pain or swelling Neurological: no numbness/tingling, no weakness, positive dizziness MEDICATIONS: I agree with the patient medications as charted by the RN. ALLERGIES: I agree with the allergies as charted by the RN. PAST MEDICAL HISTORY/PAST SURGICAL HISTORY: Reviewed and agree as charted by RN. SOCIAL HISTORY: Reviewed and agree as charted by RN. FAMILY HISTORY: No significant familial comorbid conditions directly related to patient complaint EXAM: Reviewed vital signs as charted by RN. CONSTITUTIONAL: Alert and oriented and responds appropriately to questions. Well-appearing; well-nourished HEAD: Normocephalic; atraumatic EYES: PERRL; Conjunctivae clear, sclerae non-icteric. No nystagmus. ENT: normal nose; no rhinorrhea; moist mucous membranes; pharynx without lesions noted, no uvula edema or deviation, no tonsillar hypertrophy, phonation normal. Bilateral tympanic membranes are pearly hurley without fluid NECK: Supple without meningismus; non-tender; no cervical lymphadenopathy, no masses CARD: RRR; no murmurs, no clicks, no rubs, no gallops; symmetric distal pulses RESP: Normal chest excursion without splinting or tachypnea; breath sounds clear and equal bilaterally; no wheezes, no rhonchi, no rales, pulse oximetry ABD/GI: Normal bowel sounds; non-distended; soft, non-tender, no rebound, no guarding; no palpable organomegaly or masses. BACK: The back appears normal and is non-tender to palpation, there is no CVA tenderness EXT: Normal ROM in all joints; non-tender to palpation; no cyanosis, no effusions, no edema SKIN: Normal color for age and race; warm; dry; good turgor; no acute lesions noted NEURO: Moves all extremities equally; Motor and sensory function intact. Face symmetric. Tongue protrudes midline. Extraocular motions intact. Pupils are 2 mm and equally reactive. Normal speech, normal gait. 5 out of 5 strength in both the distal and proximal upper and lower extremities bilaterally. Sensation is grossly intact throughout. Finger to nose testing normal. Pronator drift normal. PSYCH: The patient's mood and manner are appropriate. Grooming and personal hygiene are appropriate. MDM: 20-year-old female reporting room spinning sensation for 2 to 3 days. Fairly constant but worse with position change. No chest pain no shortness of breath she is completely neurologically intact today her gait is completely normal. Will obtain baseline screening labs EKG, no headache and no prior history to suggest need for emergent imaging today. The patient was evaluated during the global COVID-19 pandemic and that diagnosis was suspected/considered upon their initial presentation. Their evaluation, treatment and testing was consistent with current guidelines for patients who present with complaints or symptoms that may be related to COVID-19 TRAVEL OUTSIDE OF THE [place] IN LAST 30 DAYS: No - Related Data Allergies/Adverse Reactions: No Known Allergies Allergy (Verified 06/09/20 14:25) Past Medical History - General Information source: Patient - Social History Smoking Status: Current Every Day Smoker Frequency of alcohol use: None Drug Abuse: None Family History: Reviewed & Not Pertinent Neurological Medical History: Reports: Hx Migraine Renal/ Medical History: Denies: Hx Peritoneal Dialysis GI Medical History: Reports: Hx Gastroesophageal Reflux Disease Psychiatric Medical History: Reports: Hx Anxiety Past Surgical History: Reports: Hx Myringotomy - Immunizations Immunizations up to date: Yes Hx Diphtheria, Pertussis, Tetanus Vaccination: Yes Physical Exam - Vital signs Vitals: Temp Pulse Resp BP Pulse Ox 97.2 F 83 14 132/93 H 100 07/22/20 10:59 07/22/20 10:59 07/22/20 10:59 07/22/20 10:59 07/22/20 10:59 Course - Re-evaluation Re-evalutation: 07/22/20 13:52 Patient's lab work does not show any acute abnormalities other than being positive for marijuana. Patient has absolutely no neurologic symptoms to sugges t an acute event such as CVA. She has no headache. She is ambulatory in the room with absolutely no difficulty. Her gait is not antalgic. Her speech is not slurred. She states that she has made an appointment with ENT I will also refer her to neurology for further work-up and evaluation of the symptoms. - Vital Signs Vital signs: Temp Pulse Resp BP Pulse Ox 97.2 F 84 14 122/78 100 07/22/20 10:59 07/22/20 13:43 07/22/20 10:59 07/22/20 13:43 07/22/20 10:59 - Laboratory Results Result Diagrams: 07/22/20 11:29 07/22/20 11:29 Laboratory Results Interpreted: 07/22/20 11:20 Urine Blood SMALL H Critical Laboratory Results Reviewed: No Critical Results - Radiology Results Critical Radiology Results Reviewed: No Critical Results Discharge - Discharge Clinical Impression: Dizziness, Marijuana use Condition: Stable Disposition: HOME, SELF-CARE Instructions: Dizziness ([facility]), Meclizine ([facility]) Additional Instructions: Your lab work did not show any acute abnormalities. Take the Antivert to help with the dizziness, follow-up with both ENT and neurology for further work-up and evaluation Prescriptions: Meclizine HCl [Antivert 25 mg Tablet] 25 mg PO TID PRN #21 tablet PRN Reason: Referrals: PUMA HENNESSY MD [Primary Care Provider] - Follow up as needed CRISTELA CHAPPELL MD [COMMUNITY BASED STAFF] - Follow up as needed
[2020-07-22 11:47] LABS: ABSOLUTE EOSINOPHILS # (AUTO) 0.1 10^3/uL (0.0-0.6); ABSOLUTE LYMPHOCYTES (AUTO) 2.1 10^3/uL (0.5-4.7); ABSOLUTE MONOCYTES (AUTO) 0.4 10^3/uL (0.1-1.4); ABSOLUTE NEUT (AUTO) 2.4 10^3/uL (1.7-8.2); BASOPHILS % (AUTO) 0.7 % (0-2); EOSINOPHILS % (AUTO) 2.5 % (0-6); HEMATOCRIT 40.1 % (36.0-47.0); HEMOGLOBIN 14.4 g/dL (12.0-15.5); LYMPHOCYTES % (AUTO) 41.5 % (13-45); MEAN CORPUSCULAR HEMOGLOBIN 30.5 pg (27.0-33.4); MEAN CORPUSCULAR VOLUME 85 fl (80-97); MONOCYTES % (AUTO) 7.5 % (3-13); PLATELET COUNT 262 10^3/uL (150-450); RED BLOOD COUNT 4.73 10^6/uL (3.72-5.28); RED CELL DISTRIBUTION WIDTH 12.8 % (11.5-14.0); SEGMENTED NEUTROPHILS % (AUTO) 47.8 % (42-78); TOTAL CELLS COUNTED % (AUTO) 100 %
[2020-07-22 12:11] LABS: ALBUMIN 4.6 g/dL (3.5-5.0); ALKALINE PHOSPHATASE 43 U/L (38-126); ANION GAP 7 (5-19); ASPARTATE AMINO TRANSFERASE 20 U/L (14-36); BILIRUBIN,DIRECT 0.2 mg/dL (0.0-0.4); BILIRUBIN,TOTAL 0.5 mg/dL (0.2-1.3); BLOOD UREA NITROGEN 11 mg/dL (7-20); CALCIUM 9.8 mg/dL (8.4-10.2); CARBON DIOXIDE 28 mmol/L (22-30); CHLORIDE 106 mmol/L (98-107); GLUCOSE 83 mg/dL (75-110); POTASSIUM 4.2 mmol/L (3.6-5.0); TOTAL PROTEIN 7.5 g/dL (6.3-8.2)
[2020-07-22 12:49] LABS: APPEARANCE,URINE CLEAR; BILIRUBIN,URINE NEGATIVE (NEGATIVE); COLOR,URINE YELLOW; GLUCOSE, URINE NEGATIVE (NEGATIVE); KETONES,URINE NEGATIVE (NEGATIVE); LEUKOCYTE ESTERASE,URINE NEGATIVE (NEGATIVE); NITRITE,URINE NEGATIVE (NEGATIVE); PROTEIN,URINE NEGATIVE (NEGATIVE); URINE SPECIFIC GRAVITY 1.013; UROBILINOGEN,URINE NEGATIVE mg/dL (<2.0)
--- NOTE | 2020-07-22 13:22 | EKG REPORT ---
SEVERITY:- NORMAL ECG - SINUS RHYTHM : Confirmed by: Doni Tijerina MD 22-Jul-2020 13:21:46
[2020-07-22 13:23] LABS: URINE AMPHETAMINES SCREEN NEGATIVE; URINE BARBITURATES SCREEN NEGATIVE; URINE BENZODIAZEPINES SCREEN NEGATIVE; URINE COCAINE SCREEN NEGATIVE; URINE METHADONE SCREEN NEGATIVE; URINE PHENCYCLIDINE SCREEN NEGATIVE
[2020-07-22 13:25] LABS: URINE MARIJUANA (THC) SCREEN UNCONFIRMED POSITIVE
[2020-07-22 13:45] VITALS: BP 114/69
== END 2020-07-22 14:06 | disposition home or self-care (01) ==
LOC: ER 10:52
DX: R42 Dizziness and giddiness (principal); H53.8 Other visual disturbances; F17.200 Nicotine dependence, unspecified, uncomplicated; Z20.822 Contact with and (suspected) exposure to COVID-19
CPT/HCPCS: 36415; 80053; 80307; 81001; 84443; 84703; 85025; 93005; 93010; 99284